=== PATIENT | male | born 2000 | race African-American/Black ===

== ENCOUNTER 2020-04-12 21:54 | Emergency (ER) | payer MEDICAID ==
[~2020-04-12] VITALS: Ht 182.9 cm; Wt 70.8 kg
[2020-04-12 23:46] LABS: Urine Bacteria NONE SEEN /hpf (None Seen); Urine Blood 1+ /uL (Negative); Urine Mucus FEW (None Seen); Urine WBC 643 /hpf (0 - 3); Urine WBC Clumps PRESENT /hpf (None Seen)
[2020-04-13] MEDS ORDERED: AZITHROMYCIN 250 MG TAB PO ONE ×2 (00:30→00:40)
[2020-04-13] MEDS ORDERED: cefTRIAXone SOD 1,000 MG VL IM ONE (00:30)
[2020-04-13] MEDS ORDERED: cefTRIAXone SOD 1,000 MG VL ONE (00:39)
[2020-04-13 00:45] VITALS: BP 153/87
== END 2020-04-13 01:00 | disposition home or self-care (01) ==
LOC: ER 21:56
DX: N39.0 Urinary tract infection, site not specified (principal); J45.909 Unspecified asthma, uncomplicated; Z88.2 Allergy status to sulfonamides; Z20.2 Contact with and (suspected) exposure to infections with a predominantly sexual mode of transmission
CPT/HCPCS: 81001; 96372; 99283; J0696; 81025

== ENCOUNTER 2020-07-31 21:20 | Emergency (ER) | payer MEDICAID, OTHER ==
[~2020-07-31] VITALS: Ht 182.9 cm; Wt 70.8 kg
[2020-07-31 22:34] LABS: Alcohol, Urine < 3.0 mg/dL (0-10); Amphetamine Screen, Urine NEGATIVE (NEGATIVE); Barbiturate Scree,Urine NEGATIVE (NEGATIVE); Benzodiazephine Screen, Urine NEGATIVE (NEGATIVE); Cannabinoid Screen, Urine NEGATIVE (NEGATIVE); Cocaine Screen, Urine NEGATIVE (NEGATIVE); Opiate Scree,Urine NEGATIVE (NEGATIVE); Phencyclidine Screen, Urine NEGATIVE (NEGATIVE)
[2020-07-31 22:50] LABS: Urine Bacteria NONE SEEN /hpf (None Seen); Urine Blood TRACE /uL (Negative); Urine Specific Gravity 1.013 (1.001-1.035); Urine WBC 470 /hpf (0 - 3); Urine WBC Clumps PRESENT /hpf (None Seen)
[2020-08-01] MEDS ORDERED: cefTRIAXone SOD 1,000 MG VL IM ONE (01:15)
[2020-08-01] MEDS ORDERED: SULFAMETHOX W/TRIMETH(800/160MG) DS TAB PO ONE (01:15)
[2020-08-01] MEDS ORDERED: levoFLOXacin 250 MG TAB PO ONE (01:15)
[2020-08-01 01:29] VITALS: BP 125/77
== END 2020-08-01 01:58 | disposition home or self-care (01) ==
LOC: ER 21:23
DX: N39.0 Urinary tract infection, site not specified (principal); E86.0 Dehydration; Z88.2 Allergy status to sulfonamides
CPT/HCPCS: 80307; 81001; 87086; 96372; 99283; J0696

== ENCOUNTER 2024-09-10 09:50 | Day surgery (SDC) | payer MEDICAID ==
[2024-09-08 10:32] LABS: Basophils # (auto) 0 10 ^3/uL (0-0.2); Basophils % (auto) 0.3 % (0.0-2.0); Eosinophils # (auto) 0.2 10 ^3/uL (0-0.8); Eosinophils % (auto) 3.7 % (0.0-7.0); Hematocrit 46.5 % (41.0-53.0); Hemoglobin 15.7 g/dL (13.5-17.5); Lymphocytes # (auto) 1.3 10 ^3/uL (0.4-5.4); Lymphocytes % (auto) 27.4 % (10.0-50.0); Mean Corpuscular Hemoglobin 29.9 pg (28.0-32.0); Mean Corpuscular Hgb Conc. 33.8 g/dL (32.0-36.0); Mean Corpuscular Volume 88.4 fL (80.0-100.0); Monocytes # (auto) 0.4 10 ^3/uL (0-1.3); Monocytes % (auto) 8.6 % (0.0-12.0); Neutrophils # (auto) 2.8 10 ^3/uL (1.6-8.6); Nucleated Red Blood Cells % 0.1 %; Platelet Count (auto) 202 10^3/uL (140-450); Red Blood Cells 5.26 10^6/uL (4.5-5.90); Red Cell Distribution Width 14.1 % (11.8-14.3); White Blood Cell 4.6 10^3/uL (4.4-10.8)
[2024-09-08 10:40] LABS: Alanine Aminotransferase 19 U/L (7-40); Alkaline Phosphatase 57 U/L (46-116); Anion Gap 6 (5-15); BUN/Creatinine Ratio 9.9 (10.0-20.0); Blood Urea Nitrogen 11 mg/dL (9-23); Carbon Dioxide 29 mmol/L (20-31); Glucose 84 mg/dL (74-106); INR 1.05 (0.9-1.15); Partial Thromboplastin Time 25.9 SEC (24.5-34.5); Potassium 4.1 mmol/L (3.5-5.1); Prothrombin Time 11.1 sec (9.3-11.8); Sodium 142 mmol/L (136-145)
[2024-09-08 10:41] LABS: Aspartate Aminotransferase 17 U/L (13-40); Total Protein 7.4 g/dL (5.7-8.2)
[2024-09-08 10:42] LABS: Bilirubin, Total 0.5 mg/dL (0.2-1.0)
[2024-09-08 10:50] LABS: Calcium 10.4 mg/dL (8.7-10.4); Chloride 107 mmol/L (98-107)
[~2024-09-10] VITALS: Ht 185.4 cm; Wt 74.8 kg
[~2024-09-10 09:50] MED LIST: IBUP200C14 PO; PANT40T PO
[2024-09-10] MEDS ORDERED: SODIUM CHLORIDE LOCK 10 ML ONE (11:19)
[2024-09-10] MEDS: MIDAZOLAM HCL 5 MG/ML-1ML VIAL ONE (11:44)
[2024-09-10] MEDS: fentaNYL CITRATE 100 MCG/2 ML VL ONE (11:44)
[2024-09-10 12:03] VITALS: PULSE 79; RESP 11; TEMP 97.4; O2SAT 95
--- NOTE | 2024-09-10 12:14 | DVHNC2 ---
Procedure - DATE OF PROCEDURE: September 10, 2024 SURGEON: KENDRA MOSQUEDA MD REFERRING PROVIDER: Dr. Hali Mendoza MD PROCEDURE PERFORMED: 1 Colonoscopy with moderate sedation PRE-PROCEDURE DIAGNOSIS: 1. History of GI bleeding POSTPROCEDURE DIAGNOSIS: 1. Internal hemorrhoids otherwise normal colonoscopy INDICATIONS FOR PROCEDURE: The patient is a 24-year-old male presents for outpatient colonoscopy for rectal bleeding. MEDICATIONS USED: 8 mg of Versed IV and 100 mcg IV given in incremental doses DETAILS OF THE PROCEDURE: Informed consent was obtained after risks, benefits, and alternatives, were discussed at length with the patient. The patient gave consent to the procedure as well as the medication used for sedation. The patient was placed in the left lateral decubitus position. Digital rectal exam showed internal hemorrhoids. An Olympus variable torsion pediatric colonoscope was inserted into the rectum and advanced to the cecum. The cecum was identified by the ileocecal valve and the appendiceal orifice. The scope was then withdrawn. The prep was excellent with only small amounts of liquid stool. There were no large polyps masses strictures or arteriovenous malformations. Retroflexion showed internal hemorrhoids. More than 6 minutes of withdrawal time was noted. The patient tolerated the procedure well. [place] BOWEL PREP SCORE: 9 COLONOSCOPY START TIME: 1150 CECUM TIME: 1151 COLONOSCOPY END TIME:1158 IMPRESSION: 1. Internal hemorrhoids otherwise normal colonoscopy 2. No significant source of bleeding identified RECOMMENDATIONS: 1. Follow up in GI clinic for procedure results 2. High-fiber diet 3. Follow up with primary care physician 4. Patient needs endoscopy for further workup I WOULD LIKE TO THANK DR. MENDOZA FOR THIS REFERRAL KENDRA MOSQUEDA MD Sep 10, 2024 12:13
[2024-09-10 12:50] VITALS: BP 103/59; PULSE 53; RESP 53; O2SAT 100
== END 2024-09-10 13:10 | disposition home or self-care (01) ==
LOC: GI 09:50
PROVIDERS: ATTEND Specialist
DX: K62.5 Hemorrhage of anus and rectum (principal); K64.8 Other hemorrhoids; J45.909 Unspecified asthma, uncomplicated; F12.90 Cannabis use, unspecified, uncomplicated; Z79.899 Other long term (current) drug therapy
CPT/HCPCS: 36415; 45378; 80053; 85025; 85610; 85730; J2250; J3010; 99152

== ENCOUNTER → 2024-10-22 | Day surgery (SDC) | payer MEDICAID ==
[2024-10-21 10:33] LABS: Basophils # (auto) 0 10 ^3/uL (0-0.2); Basophils % (auto) 0.7 % (0.0-2.0); Eosinophils # (auto) 0.2 10 ^3/uL (0-0.8); Eosinophils % (auto) 5.6 % (0.0-7.0); Hematocrit 45.8 % (41.0-53.0); Hemoglobin 15.5 g/dL (13.5-17.5); Lymphocytes # (auto) 1.2 10 ^3/uL (0.4-5.4); Lymphocytes % (auto) 31.8 % (10.0-50.0); Mean Corpuscular Hemoglobin 29.7 pg (28.0-32.0); Mean Corpuscular Hgb Conc. 33.9 g/dL (32.0-36.0); Mean Corpuscular Volume 87.7 fL (80.0-100.0); Monocytes # (auto) 0.3 10 ^3/uL (0-1.3); Neutrophils # (auto) 2.1 10 ^3/uL (1.6-8.6); Neutrophils % (auto) 53.9 % (37.0-80.0); Platelet Count (auto) 186 10^3/uL (140-450); Red Blood Cells 5.23 10^6/uL (4.5-5.90); Red Cell Distribution Width 14.4 % (11.8-14.3); White Blood Cell 3.9 10^3/uL (4.4-10.8)
[2024-10-21 10:46] LABS: INR 1.05 (0.9-1.15); Partial Thromboplastin Time 26.8 SEC (24.5-34.5); Prothrombin Time 11.1 sec (9.3-11.8)
[2024-10-21 10:51] LABS: Alanine Aminotransferase 20 U/L (7-40); Alkaline Phosphatase 54 U/L (46-116); Anion Gap 7 (5-15); Aspartate Aminotransferase 14 U/L (13-40); BUN/Creatinine Ratio 10.4 (10.0-20.0); Blood Urea Nitrogen 11 mg/dL (9-23); Carbon Dioxide 29 mmol/L (20-31); Chloride 106 mmol/L (98-107); Glucose 89 mg/dL (74-106); Potassium 4.5 mmol/L (3.5-5.1); Sodium 142 mmol/L (136-145); Total Protein 7.4 g/dL (5.7-8.2)
[2024-10-21 10:52] LABS: Bilirubin, Total 0.6 mg/dL (0.2-1.0)
[2024-10-21 10:54] LABS: Albumin 4.9 g/dL (3.2-4.8); Calcium 10.7 mg/dL (8.7-10.4)
[~2024-10-22] VITALS: Ht 185.4 cm; Wt 74.8 kg
[2024-10-22] MEDS: fentaNYL CITRATE 100 MCG/2 ML VL ONE (08:38)
[2024-10-22] MEDS: MIDAZOLAM HCL 2MG/2ML 2ml VIAL (1mg/ml) ONE ×2 (08:38→08:50)
--- NOTE | 2024-10-22 08:42 | DVHNC2 ---
Procedure - PROCEDURE DATE: OCTOBER 22, 2024 PROCEDURE PERFORMED BY: Kendar Mosqueda MD REFERRING PROVIDER: Radha Mendoza PROCEDURE PERFORMED: 1. ESOPHAGOGASTRODUODENOSCOPY WITH MODERATE SEDATION 2. ESOPHAGOGASTRODUODENOSCOPY WITH BIOPSY PRE-PROCEDURE DIAGNOSIS: 1. ABDOMINAL PAIN 2. GERD POSTPROCEDURE DIAGNOSIS: 1. Mild erosive esophagitis, Z-line at 44 cm 2. Moderate erosive gastritis of the body and antrum with pyloric deformity, biopsies taken INDICATIONS FOR PROCEDURE: The patient is a 24-year-old male with a history of GI bleeding, abdominal pain and GERD. MEDICATIONS USED: 7mg of Versed IV and 100mcg of fentanyl IV were given in incremental doses DETAILS OF THE PROCEDURE: Informed consent was obtained after risks, benefits, and alternatives, were discussed at length with the patient. The patient gave consent to the procedure as well as some medication used for sedation. The patient was placed in the left lateral decubitus . An Olympus endoscope was inserted into the oropharynx advanced into the esophagus, then into the stomach, then into the duodenal bulb and duodenum. The scope was then withdrawn. The duodenal bulb and duodenum were normal. Biopsies were taken to be sent for pathology given the patient's symptoms. The stomach showed moderate erosive gastritis with some deformity of the pyloric area. Biopsies were taken of the body and antrum. Retroflexed view showed no abnormalities. The scope was then withdrawn. The Z-line was at 44 cm. The patient had mild erosive esophagitis. The scope was then returned in the procedure completed. The patient tolerated the procedure well. IMPRESSION: 1. MILD EROSIVE ESOPHAGITIS LA GRADE CAPITAL AREA WITH A Z-LINE AT 44 CM 2. MODERATE EROSIVE GASTRITIS OF THE BODY AND ANTRUM WITH SLIGHT DEFORMITY OF THE PYLORUS, BIOPSIES TAKEN 3. NORMAL DUODENAL BIOPSIES TAKEN. RECOMMENDATION: 1. Continue proton pump inhibitor, 30 minutes before breakfast daily 2. Reflux precautions. Avoid greasy food, spicy food, alcohol, tobacco, citrus, tomatoes, NSAIDs. 3. follow up in GI clinic. 4. Follow up with biopsies and treat as indicated 5. Follow up with primary care physician. 6. Repeat endoscopy is indicated I WOULD LIKE TO THANK RADHA MENDOZA FOR THIS REFERRAL KENDRA MOSQUEDA MD October 22, 2024 08:42
[2024-10-22 08:55] VITALS: PULSE 68; RESP 14; TEMP 98.9; O2SAT 95
[2024-10-22 09:40] VITALS: BP 102/58; PULSE 73; RESP 13; O2SAT 96
== END | disposition home or self-care (01) ==
LOC: GI 08:01
PROVIDERS: ATTEND Specialist
DX: K21.00 Gastro-esophageal reflux disease with esophagitis, without bleeding (principal); K29.50 Unspecified chronic gastritis without bleeding; J45.909 Unspecified asthma, uncomplicated; F12.90 Cannabis use, unspecified, uncomplicated; F17.210 Nicotine dependence, cigarettes, uncomplicated; Z88.2 Allergy status to sulfonamides; Z79.899 Other long term (current) drug therapy
CPT/HCPCS: 36415; 43239; 80053; 85025; 85610; 85730; 88305; 88342; J2250; J3010; 99152; 99153